=== PATIENT | male | born 1970 | race Caucasian/White ===

== ENCOUNTER 2025-02-14 10:55 | Inpatient (IN) | payer MEDICAID ==
[~2025-02-14] VITALS: Ht 167.6 cm; Wt 63.6 kg
[2025-02-14 11:33] LABS: EOSINOPHILS % 1.3 % (0.0-5.0); HEMATOCRIT. 40.9 % (42.0-52.0); HEMOGLOBIN. 14.6 g/dL (14.0-18.0); MEAN CORPUSCULAR HEMOGLOBIN 32.9 pg (28.0-32.0); MEAN CORPUSCULAR HGB CONC 35.7 g/dL (31.0-37.0); MEAN CORPUSCULAR VOLUME 92.1 fL (80.0-94.0); NEUTROPHILS % 45.7 % (40.0-76.0); PLATELET 209 x1000/uL (130-400); RED BLOOD CELL COUNT 4.44 mill/uL (4.7-6.1); RED CELL DISTRIBUTION WIDTH 12.2 % (11.6-14.6); WHITE BLOOD COUNT 6.7 x1000/uL (4.5-11.0)
[2025-02-14 11:36] LABS: CHLORIDE 110 mEq/L (98-107); POTASSIUM 3.6 mEq/L (3.5-5.1); SODIUM 142 mEq/L (136-145)
[2025-02-14 11:37] LABS: CARBON DIOXIDE 24 mEq/L (21-32)
[2025-02-14 11:38] LABS: CALCIUM 8.4 mg/dL (8.7-10.4)
[2025-02-14] MEDS: SODIUM CHLORIDE 0.9% 1,000 ML IV ONE (11:38)
[2025-02-14 11:42] LABS: CREATININE 0.8 mg/dL (0.6-1.3)
[2025-02-14 11:43] LABS: ETHANOL BLOOD 300 mg/dL (<10); GLUCOSE 107 mg/dL (70-105); UREA NITROGEN BLOOD 8 mg/dL (9-23)
[2025-02-14 11:44] LABS: ALANINE AMINOTRANSFERASE 16 IU/L (10-49); ALBUMIN 4.1 g/dL (3.2-4.8); ASPARTATE AMINOTRANSFERASE 20 IU/L (<34)
[2025-02-14 11:45] LABS: BILIRUBIN DIRECT 0.1 mg/dL (<=3.0); BILIRUBIN TOTAL 0.7 mg/dL (0.1-1.0); PROTEIN TOTAL 7.5 g/dL (6.0-8.3)
[2025-02-14 11:55] LABS: PROTHROMBIN TIME 10.6 sec (9.6-11.0)
[2025-02-14] MEDS: HALOPERIDOL LACTATE 5MG/ML VIAL IM ONE (12:33)
[2025-02-14] MEDS: DIPHENHYDRAMINE 50MG/ML VIAL IM ONE (13:24)
[2025-02-14] MEDS: OLANZAPINE 10 MG/VIAL IM ONE (13:24)
[2025-02-14 15:45] VITALS: BP 147/79; PULSE 76; RESP 18; TEMP 36.5
[2025-02-14 16:07] VITALS: BP 147/79; RESP 18; TEMP 36.4; O2SAT 98
[2025-02-14] MEDS ORDERED: MAGNESIUM/ALUMINUM HYDROXIDE/SIMETHICONE 30ML UDC PO PRN (17:45)
[2025-02-14] MEDS ORDERED: ACETAMINOPHEN 325MG TABLET PO PRN ×2 (17:45)
[2025-02-14] MEDS ORDERED: DIPHENHYDRAMINE 50MG/ML VIAL IV PRN (17:45)
[2025-02-14] MEDS ORDERED: DOCUSATE SODIUM 100MG CAPSULE PO PRN (17:45)
[2025-02-14] MEDS ORDERED: CLONIDINE 0.1MG TABLET PO PRN (17:45)
[2025-02-14] MEDS ORDERED: IPRATROPIUM/ALBUTEROL 0.5-3(2.5)MG/3ML NEB HHN PRN (17:45)
[2025-02-14] MEDS ORDERED: GUAIFENESIN 200MG/10ML SUGAR FREE UDC PO PRN (17:45)
[2025-02-14] MEDS ORDERED: LORAZEPAM 2MG/ML UD SYRINGE IV PRN (17:45)
[2025-02-14] MEDS: ONDANSETRON HCL 4MG/2ML INJ IV SCH (18:06)
[2025-02-14] MEDS: PANTOPRAZOLE SODIUM 40 MG/VIAL IV SCH (18:06)
[2025-02-14 18:34] LABS: CLARITY URINE CLEAR (CLEAR); GLUCOSE URINE NEGATIVE (NEGATIVE); KETONES URINE NEGATIVE (NEGATIVE); LEUKOCYTE ESTERASE URINE NEGATIVE (NEGATIVE); NITRITE URINE NEGATIVE (NEGATIVE); OCCULT BLOOD URINE TRACE (NEGATIVE); PH URINE 6.5 (4.5-8.0); PROTEIN URINE NEGATIVE (NEGATIVE); SPECIFIC GRAVITY URINE 1.009 (1.005-1.030); UROBILINOGEN URINE 0.2 E.U./dL (0.2-1.0)
[2025-02-14 18:58] LABS: *AMPHETAMINES SCREEN URINE NEGATIVE (NEGATIVE); *BARBITURATES SCREEN URINE NEGATIVE (NEGATIVE); *BENZODIAZEPINES SCREEN URINE NEGATIVE (NEGATIVE); *COCAINE SCREEN URINE NEGATIVE (NEGATIVE); METHADONE URINE SCREEN NEGATIVE (NEGATIVE)
[2025-02-14 18:59] LABS: CANNABINOID URINE SCREEN NEGATIVE (NEGATIVE); ECSTASY MDMA SCREEN URINE NEGATIVE (NEGATIVE); OPIATES URINE SCREEN NEGATIVE (NEGATIVE); PHENCYCLIDINE URINE SCREEN NEGATIVE (NEGATIVE)
[2025-02-14 19:38] LABS: COLOR URINE STRAW (YELLOW)
[2025-02-14 19:42] LABS: BACTERIA URINE NONE SEEN; RBC URINE 0-2 /hpf (0-2); SQUAMOUS EPITHELIAL CELL URINE NONE SEEN /lpf (RARE/1+); WBC URINE NONE SEEN /hpf (0-2)
[2025-02-14 20:00] VITALS: BP 124/64; PULSE 73; RESP 19; TEMP 36.7; O2SAT 98
[2025-02-14] MEDS: MVI, ADULT NO.1 10 ML, FOLIC ACID 1 MG, THIAMINE HCL 100 MG in SODIUM CHLORIDE 0.9% 1,0... IV SCH (20:00)
[2025-02-15] VITALS: BP 126/70; PULSE 79; RESP 19; TEMP 36.8; O2SAT 100
[2025-02-15 01:40] LABS: CREATINE KINASE 744 IU/L (46-171)
[2025-02-15 01:43] LABS: CREATINE KINASE MB FRACTION 6.8 ng/mL (0.5-3.6); TROPONIN I HIGH SENSITIVITY 8 ng/L (3.0-53)
[2025-02-15 04:00] VITALS: BP 132/79; PULSE 93; RESP 18; TEMP 37.1; O2SAT 98
[2025-02-15 07:54] LABS: EOSINOPHILS % 0.2 % (0.0-5.0); HEMATOCRIT. 42.3 % (42.0-52.0); HEMOGLOBIN. 14.8 g/dL (14.0-18.0); LYMPHOCYTES % 29.5 % (20.0-50.0); MEAN CORPUSCULAR HEMOGLOBIN 32.5 pg (28.0-32.0); MEAN CORPUSCULAR VOLUME 92.8 fL (80.0-94.0); MEAN PLATELET VOLUME 7.4 fl (7.4-10.4); MONOCYTES % 6.9 % (2.0-8.0); NEUTROPHILS % 62.4 % (40.0-76.0); PLATELET 202 x1000/uL (130-400); RED BLOOD CELL COUNT 4.55 mill/uL (4.7-6.1); RED CELL DISTRIBUTION WIDTH 12.3 % (11.6-14.6); WHITE BLOOD COUNT 5.4 x1000/uL (4.5-11.0)
[2025-02-15 07:59] LABS: CARBON DIOXIDE 21 mEq/L (21-32); CHLORIDE 109 mEq/L (98-107); SODIUM 146 mEq/L (136-145)
[2025-02-15 08:01] LABS: CALCIUM 8.9 mg/dL (8.7-10.4); CREATINE KINASE MB FRACTION 5.7 ng/mL (0.5-3.6)
[2025-02-15 08:05] LABS: CREATININE 0.8 mg/dL (0.6-1.3); GLUCOSE 60 mg/dL (70-105); T4 FREE 0.99 ng/dL (0.89-1.76); THYROID STIMULATING HORMONE 0.88 uIU/mL (0.55-4.78); TRIGLYCERIDE 166 mg/dL (0-150)
[2025-02-15 08:06] LABS: LDL CHOLESTEROL 123 mg/dL (5-100); UREA NITROGEN BLOOD 15 mg/dL (9-23)
[2025-02-15 08:07] LABS: CHOLESTEROL 208 mg/dL (<200); HDL CHOLESTEROL 56 mg/dL (>55)
[2025-02-15 08:19] VITALS: BP 156/97; PULSE 105; RESP 18; TEMP 36.9; O2SAT 97
[2025-02-15] MEDS: THIAMINE HCL 100MG TABLET PO SCH (08:41)
[2025-02-15] MEDS: FOLIC ACID 1MG TABLET PO SCH (08:41)
[2025-02-15] MEDS ORDERED: DEXT 5% WATER 100 ML IV ONE (11:45)
[2025-02-15] MEDS: DEXTROSE 5% WATER 1,000 ML IV SCH (11:54)
[2025-02-15 11:58] VITALS: BP 137/72; PULSE 82; RESP 20; TEMP 36.8; O2SAT 99
[2025-02-15] MEDS: CHLORDIAZEPOXIDE 25MG CAPSULE PO SCH (13:13)
[2025-02-15 16:01] VITALS: BP 130/72; PULSE 71; RESP 20; TEMP 36.8; O2SAT 100
[2025-02-15 20:00] VITALS: BP 133/79; PULSE 97; RESP 18; TEMP 36.6; O2SAT 96
[2025-02-16] VITALS: BP 146/83; PULSE 60; RESP 18; TEMP 36.9; O2SAT 97
[2025-02-16 04:00] VITALS: BP 105/75; PULSE 63; RESP 19; TEMP 36.8; O2SAT 97
[2025-02-16 08:00] VITALS: BP 130/84; PULSE 71; RESP 20; TEMP 36.6; O2SAT 98
[2025-02-16 11:26] VITALS: BP 130/80; PULSE 70; TEMP 97; O2SAT 99
[2025-02-16 12:00] VITALS: BP 120/74; PULSE 82; RESP 18; TEMP 36.7; O2SAT 99
== END 2025-02-16 12:20 | disposition home or self-care (01) | DRG 52 ==
LOC: ER 10:55 → 7WST 14:53 → EDBD 14:53 → EDBEDREQTM 14:56 → EDBEDREQ 14:56 → ENRESERV 15:03
PROVIDERS: ADMIT Hospitalist; ATTEND Hospitalist
DX: G92.8 Other toxic encephalopathy (principal); E83.51 Hypocalcemia; F10.129 Alcohol abuse with intoxication, unspecified; I10 Essential (primary) hypertension; Y90.8 Blood alcohol level of 240 mg/100 ml or more
CPT/HCPCS: 36415; 71045; 80048; 80061; 80076; 80305; 80320; 81003; 82550; 82553; 82962; 84439; 84443; 84484; 85025; 93005; 99285; A4606; J1200; J1630; J2405; J2470; J3411; J3490; J7030; J7070; G0480